=== PATIENT | female | born 1970 | race Caucasian/White ===

== ENCOUNTER 2022-01-08 08:28 | Outpatient (CLI) | payer BC | END 2022-01-08 08:29 | disposition home or self-care (01) | LOC: CSHULT 08:28 | PROVIDERS: ATTEND Family Medicine | DX: R10.30 Lower abdominal pain, unspecified (principal); R19.5 Other fecal abnormalities; R79.9 Abnormal finding of blood chemistry, unspecified; Z90.49 Acquired absence of other specified parts of digestive tract | CPT/HCPCS: 76700 ==

== ENCOUNTER 2022-06-19 08:29 | Outpatient (CLI) | payer BC | END 2022-06-19 08:30 | disposition home or self-care (01) | LOC: CSHMAMMO 08:29 | PROVIDERS: ATTEND Family Medicine | DX: Z12.31 Encounter for screening mammogram for malignant neoplasm of breast (principal); Z80.3 Family history of malignant neoplasm of breast; Z80.8 Family history of malignant neoplasm of other organs or systems | CPT/HCPCS: 77063; 77067 ==

== ENCOUNTER 2024-08-23 14:26 | Inpatient (IN) | payer BC ==
[2024-08-23] MEDS ORDERED: Iopamidol 370 76% 100 ML VIAL ONE (15:47)
[2024-08-23 15:53] LABS: #Basophils 0.09 10x3/uL (0.0-0.2); #Eosinphils 0.11 10x3/uL (0.0-0.5); #Monocytes 0.58 10x3/uL (0.0-1.1); #Neutrophils 6.92 10x3/uL (1.5-8.4); %Basophils 0.8 % (0.0-2.0); %Lymphocytes 27.3 % (18.0-47.0); %Monocytes 5.4 % (0.0-10.0); %Neutrophils 64.6 % (40.0-75.0); Hematocrit 47.8 % (34.9-44.5); Hemoglobin 16.2 g/dL (12.0-15.5); Mean Corpuscular HGB CONC 33.9 g/dL (32.0-36.0); Mean Corpuscular Hemoglobin 30.2 pg (27.0-33.0); Mean Corpuscular Volume 89.2 fL (81.6-98.3); Mean Platelet Volume 10.7 fL (7.4-10.4); Platelet Count 312 10x3/uL (150-450); RBC Distribution Width 13.7 % (11.5-14.5); Red Blood Cell (RBC) Count 5.36 10x6/uL (3.90-5.03); White Blood Cell (WBC) Count 10.7 10x3/uL (3.5-10.5)
[2024-08-23 15:58] LABS: ALT (SGPT) 24 U/L (8-55); AST (SGOT) 22 U/L (5-34); Albumin 4.1 g/dL (3.5-5.0); Alkaline Phosphatase 142 U/L (40-110); Anion Gap 16 mmol/L (10-20); BUN (Urea Nitrogen) 28 mg/dL (9.8-20.1); Bilirubin, Total 0.4 mg/dL (0.2-1.2); Calc. Creatinine Clearance 0 mL/min (70-130); Calcium 10.1 mg/dL (7.8-10.44); Carbon Dioxide 23 mmol/L (22-29); Chloride 101 mmol/L (98-107); Estimated GFR 58; Globulin 3.1 g/dL (2.4-3.5); Glucose 114 mg/dL (70-105); Potassium 4.1 mmol/L (3.5-5.1); Protein, Total 7.2 g/dL (6.0-8.3); Sodium 136 mmol/L (136-145)
[2024-08-23 16:05] LABS: Troponin I Less than 0.010 ng/mL (< 0.028)
[2024-08-23] MEDS ORDERED: Aspirin Chewable 81 MG TAB ONE (16:19)
[2024-08-23] MEDS ORDERED: Acetaminophen 325 MG TAB PO PRN (17:41)
[2024-08-23] MEDS ORDERED: hydrALAZINE 20 MG/ML VIAL SLOW IVP PRN (17:41)
[2024-08-23] MEDS ORDERED: Ondansetron ODT 4 MG TAB PO PRN (17:41)
[2024-08-23 21:55] VITALS: BMI 31.8
[2024-08-23] MEDS: Atorvastatin Calcium 40 MG TAB PO SCH (21:56)
[2024-08-23] MEDS: Sodium Chloride 0.9% 1,000 ML IV SCH (21:56)
[2024-08-24 04:53] LABS: #Eosinphils 0.16 10x3/uL (0.0-0.5); #Monocytes 0.59 10x3/uL (0.0-1.1); #Neutrophils 6.48 10x3/uL (1.5-8.4); %Eosinophils 1.5 % (0.0-6.0); %Monocytes 5.7 % (0.0-10.0); Hematocrit 41.9 % (34.9-44.5); Hemoglobin 14.6 g/dL (12.0-15.5); Mean Corpuscular HGB CONC 34.8 g/dL (32.0-36.0); Mean Corpuscular Hemoglobin 31.1 pg (27.0-33.0); Mean Corpuscular Volume 89.3 fL (81.6-98.3); Mean Platelet Volume 10.5 fL (7.4-10.4); Platelet Count 275 10x3/uL (150-450); RBC Distribution Width 13.9 % (11.5-14.5); Red Blood Cell (RBC) Count 4.69 10x6/uL (3.90-5.03); White Blood Cell (WBC) Count 10.4 10x3/uL (3.5-10.5)
[2024-08-24 05:09] LABS: Anion Gap 14 mmol/L (10-20); BUN (Urea Nitrogen) 22 mg/dL (9.8-20.1); Calc. Creatinine Clearance 82 mL/min (70-130); Calcium 9.1 mg/dL (7.8-10.44); Carbon Dioxide 23 mmol/L (22-29); Cardiac Risk 4.4 (Less than 4.5); Chloride 107 mmol/L (98-107); Cholesterol 201 mg/dl (< 200 Desired); Estimated GFR 60; Glucose 96 mg/dL (70-105); HDL Cholesterol 46 mg/dL (>60 Neg Risk); LDL Cholesterol, Calculated 132 mg/dL; Potassium 3.9 mmol/L (3.5-5.1); Sodium 140 mmol/L (136-145); Triglycerides 113 mg/dL (Less than 150)
[2024-08-24] MEDS: Enoxaparin 40 MG (0.4 mL) SYRINGE SC SCH (08:21)
[2024-08-24] MEDS: Aspirin 81 mg Enteric Coated Tablet PO SCH (08:22)
[2024-08-24 14:29] LABS: Hemoglobin A1c 5.4 % (4.0-6.0)
[2024-08-24 16:32] VITALS: BP 147/81; TEMP 98.2
== END 2024-08-24 16:15 | disposition home or self-care (01) | DRG 66 ==
LOC: CSHERS 14:26 → CSHERHOLD 16:21 → CSHTELE 18:47 → OBSVTOIN 08-24 09:45
PROVIDERS: ADMIT Internal Medicine; ATTEND Physician Assistant
DX: I63.9 Cerebral infarction, unspecified (principal); I10 Essential (primary) hypertension; F17.210 Nicotine dependence, cigarettes, uncomplicated; F32.A Depression, unspecified; Z90.49 Acquired absence of other specified parts of digestive tract; Z79.899 Other long term (current) drug therapy; R47.01 Aphasia
CPT/HCPCS: 0042T; 36415; 70450; 70551; 71045; 80048; 80053; 80061; 83036; 84443; 84484; 85025; 93005; 93306; 96372; G0378; J1650; J7030; Q9967

== ENCOUNTER 2025-11-07 19:39 | Emergency (ER) | payer BC ==
[~2025-11-07 19:39] MED LIST: Iopamidol 370 76% 100 ML VIAL ONE
[2025-11-07 20:27] LABS: #Basophils 0.07 10x3/uL (0.0-0.2); #Eosinophils 0.13 10x3/uL (0.0-0.5); #Monocytes 0.49 10x3/uL (0.0-1.1); #Neutrophils 5.88 10x3/uL (1.5-8.4); %Basophils 0.8 % (0.0-2.0); %Eosinophils 1.6 % (0.0-6.0); %Lymphocytes 20.1 % (18.0-47.0); %Monocytes 5.9 % (0.0-10.0); %Neutrophils 71.1 % (40.0-75.0); Hematocrit 43.1 % (34.9-44.5); Hemoglobin 14.7 g/dL (12.0-15.5); Mean Corpuscular Hemoglobin 29.9 pg (27.0-33.0); Mean Corpuscular Volume 87.8 fL (81.6-98.3); Platelet Count 303 10x3/uL (150-450); Red Blood Cell (RBC) Count 4.91 10x6/uL (3.90-5.03); White Blood Cell (WBC) Count 8.27 10x3/uL (3.5-10.5)
[2025-11-07 20:37] LABS: Glucose, Urine (Dipstick) Normal (Negative); Leukocyte Negative (Negative); Protein, Urine (Dipstick) Negative (Neg-Trace); Specific Gravity, Urine 1.010 (1.005-1.030)
[2025-11-07 20:48] LABS: ALT (SGPT) 34 U/L (Less than 34); AST (SGOT) 27 U/L (11-34); Albumin 3.9 g/dL (3.1-4.5); Alkaline Phosphatase 117 U/L (40-110); Anion Gap 14 mmol/L (10-20); BUN (Urea Nitrogen) 21 mg/dL (9.8-20.1); Bilirubin, Total 0.2 mg/dL (0.3-1.2); Calc. Creatinine Clearance 0 mL/min (70-130); Calcium 9.3 mg/dL (7.8-10.44); Carbon Dioxide 26 mmol/L (22-29); Chloride 103 mmol/L (98-107); Globulin 2.9 g/dL (2.4-3.5); Glucose 117 mg/dL (70-105); Potassium 3.9 mmol/L (3.5-5.1); Sodium 139 mmol/L (136-145)
[2025-11-07 20:51] LABS: Troponin I Less than 0.010 ng/mL (< 0.028)
[2025-11-07 20:53] LABS: Bacteria/HPF None Seen HPF (None Seen); CAUTI Indications for Culture Alt mental st,lethar; RBC/HPF None Seen HPF (0-3); WBC/HPF None Seen HPF (0-3)
[2025-11-07 20:54] LABS: Urine Culture Reflex No No
== END 2025-11-07 23:04 | disposition home or self-care (01) ==
LOC: CSHERS 19:39
DX: H81.13 Benign paroxysmal vertigo, bilateral (principal); H74.90 Unspecified disorder of middle ear and mastoid, unspecified ear; J01.00 Acute maxillary sinusitis, unspecified; I10 Essential (primary) hypertension; R29.700 NIHSS score 0; F17.210 Nicotine dependence, cigarettes, uncomplicated; Z86.73 Personal history of transient ischemic attack (TIA), and cerebral infarction without residual deficits
CPT/HCPCS: 70496; 70498; 80053; 81001; 84484; 85025; 96374; J3360; Q9967